=== PATIENT | female | born 1955 | race Caucasian/White ===

== ENCOUNTER 2018-04-04 07:11 | Outpatient (CLI) | payer BC, SELFPAY ==
[2018-04-04 07:49] LABS: Abs Immature Grans 0.01 k/cumm (0.0-0.09); Absolute Basophil Count 0.03 k/cumm (0.0-0.2); Absolute Eosinophil Count 0.16 k/cumm (0.0-0.7); Absolute Lymphocyte Count 1.52 k/cumm (1.2-3.4); Absolute Monocyte Count 0.36 k/cumm (0.11-0.7); Absolute Neutrophil Count 2.95 k/cumm (1.2-6.7); Basophils % 0.6; Eosinophils % 3.2; HCT 43.8 % (36.0-46.0); HGB 14.5 g/dL (12.0-15.5); Immature Grans % 0.2; Lymphocytes % 30.2; Mean Corp. HGB Concentration 33.1 g/dL (32.0-36.0); Mean Corpuscular Hemoglobin 31.8 pg (27.0-33.0); Mean Corpuscular Volume 96.1 fL (80-95); Mean Platelet Volume 9.1 fL (8.0-11.0); Monocytes % 7.2; Neutrophils % 58.6; Platelet Count 212 x1000/uL (130-400); RBC 4.56 m/cumm (4.00-5.20); RBC Distribution Width 12.9 % (11.7-14.6); White Blood Cell Count 5.03 k/cumm (4.4-10.8)
[2018-04-04 08:19] LABS: Bilirubin Negative (Negative); Blood Negative (Negative); Clarity Clear; Glucose Negative (Negative); Ketones Negative (Negative); Leukocyte Esterase Trace (Negative); Nitrite Negative (Negative); Urobilinogen 0.2 EU/dL (Up TO 0.2)
[2018-04-04 08:37] LABS: Epithelial Cells Moderate HPF (Negative)
[2018-04-04 08:38] LABS: Bacteria Moderate HPF (Negative); C & S Indicated? No/Sq. Contamination; Casts Negative LPF (Negative); Crystals Negative HPF (Negative); Mucus Heavy (Negative); Other Cells Mod Transitional (Negative)
[2018-04-04 08:43] LABS: ALT 43 U/L (12-78); AST 24 U/L (15-37); Albumin 4.2 g/dL (3.4-5.0); Alkaline Phosphatase 98 U/L (46-116); Anion Gap 7.8 mmol/L (3-11); BUN 17 mg/dL (7-18); Bilirubin, Total 0.4 mg/dL (0.2-1.0); CO2 29.2 mmol/L (21.0-32.0); CREATININE 0.83 mg/dL (0.55-1.02); Calcium 9.6 mg/dL (8.5-10.1); Chloride 106 mmol/L (98-107); FREE T4 0.88 ng/dL (0.76-1.46); Glucose 111 mg/dL (70-100); Potassium 4.4 mmol/L (3.5-5.1); Sodium 143 mmol/L (136-145); Total Protein 7.2 g/dL (6.4-8.2)
[2018-04-04 09:06] LABS: Cholesterol 227 mg/dL (50-200); HDL Cholesterol 69 mg/dL (40-60); LDL CHOLESTEROL 140 mg/dL (<100); Triglyceride 91 mg/dL (30-150)
[2018-04-04 20:57] LABS: T3,Free 3.7 pg/ml (2.8-5.3)
== END 2018-04-04 07:31 ==
PROVIDERS: Visit Provider Naturopath
DX: R53.83 Other fatigue (principal); D53.9 Nutritional anemia, unspecified; E55.9 Vitamin D deficiency, unspecified; Z00.00 Encounter for general adult medical examination without abnormal findings; Z13.220 Encounter for screening for lipoid disorders; E04.2 Nontoxic multinodular goiter
CPT/HCPCS: 36415; 80053; 80061; 82306; 83721; 81003; 81015; 84439; 84443; 84481; 85025

== ENCOUNTER 2018-05-16 00:38 | Outpatient (CLI) | payer BC, SELFPAY ==
[2018-05-16 08:39] LABS: CREATININE 0.76 mg/dL (0.55-1.02)
[2018-05-16] MEDS: Omnipaque 350 MG/ML 100 ML BTL IJ (09:23)
--- NOTE | 2018-05-16 09:30 | DI.CT_ITS ---
SYMPTOM/DIAGNOSIS: MICROSCOPIC HEMATURIA, R31.[address]: A noncontrast CT scan of the abdomen and pelvis was performed followed by post contrast and delayed images. There is a non obstructing, 2 mm. stone in the mid pole of the left kidney. No other urinary tract calculi are identified. No hydronephrosis is seen. Post contrast images were then obtained. The visualized lung bases show no acute abnormality. The dome of the liver was not included on this examination. The liver enhances normally. No suspicious hepatic masses are seen. The portal and superior mesenteric veins are patent. Within the gallbladder, there is a 0.4 cm. hyperdense nodule along the non dependent wall of the gallbladder. No biliary ductal dilatation is seen. The pancreas, spleen and adrenal glands are unremarkable. The kidneys show normal and symmetric enhancement. No evidence of a solid renal mass or obstruction. There is a well circumscribed , 7 mm. hypodense cortical lesion in the superior pole of the right kidney, likely reflecting a cyst. The urinary bladder is intact. The reproductive organs are unremarkable as visualized. The abdominal aorta is of normal caliber with minimal atherosclerosis. No significant abdominal or pelvic adenopathy, ascites or pneumoperitoneum is present. The bowel shows no evidence of obstruction or inflammation. No findings to suggest an acute appendicitis are present. Degenerative changes are seen in the spine. 7 minute delayed images through the renal collecting system were obtained. There is no evidence of hydronephrosis. No filling defects are seen within the ureters. There does not appear to be a bladder mass. IMPRESSION: 1. Non obstructing stone in the mid pole of the left kidney. No ureterolithiasis or hydronephrosis. 2. Small cyst in the upper pole of the right kidney. 3. 4 mm. nodule in along the non dependent portion of the gallbladder. Sonographic correlation is recommended.
== END 2018-05-16 00:58 ==
PROVIDERS: Nurse Practitioner Gerontology; PCP Family Medicine; Visit Provider Urology
DX: R31.21 Asymptomatic microscopic hematuria (principal); N20.0 Calculus of kidney; K82.8 Other specified diseases of gallbladder
CPT/HCPCS: 74178; 82565; J3490

== ENCOUNTER 2018-05-29 01:18 | Outpatient (CLI) | payer BC, SELFPAY ==
--- NOTE | 2018-05-29 07:18 | DI.US_ITS ---
SYMPTOM/DIAGNOSIS: F/U ABNL CT SHOWING 4 MM NODULE NEXT TO GB, ? GALLSTONE R31.9, K82.9 ABDOMINAL ULTRASOUND: 05/29 The visualized liver parenchyma is normal in appearance. There is an apparent polyp of the gallbladder wall measuring about 6 mm in diameter. No biliary dilatation is seen. No gallbladder wall thickening is seen. Pancreas is unremarkable in appearance as visualized. Kidneys are normal in size and shape. There is a small echogenic mid-pole focus in the left kidney which may represent a nonobstructing stone. This appears to have been present on CT of . Abdominal aorta and IVC are of normal diameter CONCLUSION: 1. Apparent gallbladder polyp 2. Nonobstructing left mid-pole renal calculus, 4 mm
== END 2018-05-29 01:38 ==
PROVIDERS: PCP Family Medicine; Visit Provider Naturopath
DX: K82.4 Cholesterolosis of gallbladder (principal); N20.0 Calculus of kidney; R31.9 Hematuria, unspecified; K82.9 Disease of gallbladder, unspecified
CPT/HCPCS: 76700

== ENCOUNTER 2018-05-29 08:41 | Day surgery (SDC) | payer BC, SELFPAY ==
[2018-05-29] MEDS: Lactated Ringers 1,000 ML 80 ML IV (08:53)
[2018-05-29 08:59] VITALS: BP 140/87; PULSE 70; RESP 16; TEMP 36.6; O2SAT 97
[2018-05-29] MEDS: Sulfameth/Trimeth DS TAB 1 TAB PO (09:23)
[2018-05-29] MEDS: Lidocaine 2% Jelly 11 ML SYR (10:45)
--- NOTE | 2018-05-29 11:09 | W.PM.DSUDISC ---
Discharge Plan Disposition Patient Disposition: HOME Condition: Stable Discharge Details Reason For Visit: MICROHEMATURIA Attending Provider: Greg Ferro Primary Care Provider: Susan Ford Home Meds and New Rx's Prescriptions: No Action cholecalciferol (vitamin D3) 1,000 unit capsule 1,000 unit PO DAILY RF: 0 Leaf Binner Tincture 0.5 drp PO DAILY RF: 0 Discharge Instructions Additional Instructions: Pt needs to have yearly urinalysis - can be done either at PCP or in our office Activity:: Activity as Tolerated Diet:: As Tolerated Discharge Orders Discharge Orders: Discharge Order (Routine); Ordered 05/29/18 Ordered By: Greg Ferro
--- NOTE | 2018-05-29 11:16 | PDOC.DSDIS_ITS ---
Discharge Plan Disposition Patient Disposition: HOME Condition: Stable Discharge Details Reason For Visit: MICROHEMATURIA Attending Provider: Greg Ferro Primary Care Provider: Susan Ford Home Meds and New Rx's Prescriptions: No Action cholecalciferol (vitamin D3) 1,000 unit capsule 1,000 unit PO DAILY RF: 0 Sat Math Tutor Tincture 0.5 drp PO DAILY RF: 0 Discharge Instructions Additional Instructions: Pt needs to have yearly urinalysis - can be done either at PCP or in our office Activity:: Activity as Tolerated Diet:: As Tolerated Discharge Orders Discharge Orders: Discharge Order (Routine); Ordered 05/29/18 Ordered By: Greg Ferro
[2018-05-29] MEDS: Phenazopyridine 200 MG TAB PO ×2 (11:25)
[2018-05-29 11:35] VITALS: BP 136/69; PULSE 67; RESP 16; TEMP 36.8; O2SAT 100
--- NOTE | 2018-05-29 13:45 | ROE_ITS ---
Date of Operation: May 29, 2018 Preoperative Diagnosis: Microscopic hematuria. Postoperative Diagnosis: Microscopic hematuria. Procedure: Cystoscopy. Surgeon: Greg Ferro M.D. Anesthesia: MAC with local Complications: None. History: This is a 63-year-old woman with a long history of kidney stones. She was recently identified as hav ing microscopic hematuria. She's been evaluated with a CT urogram. The CT showed a simple renal cyst on the right and a small kidney stone on the left which was not cau sing hydronephrosis. She presents now for cystoscopy to evaluate her lower urinary tract. Operative Report: The patient was brought to the operating room on 05/29/18. After successful induction of monitored a nesthesia care, she was placed in the dorsal lithotomy position. Her genitalia was prepped and drape d. A 17 Urdu rigid cystoscope was passed through the urethra into the bladder. The urethra and bladde r were inspected using the 30 and 70-degree lens. Both ureteral orifices appeared normal with no blood coming from either side. The remainder of the b ladder showed some inflammatory polyps at the bladder neck as well as a few small stone particles joshua t seemed adherent to the bladder mucosa near the trigone. Otherwise, no abnormalities were identifie d. Specifically, we did not find any sign of papillary or nodular tumor. These findings were confirmed on re-inspection of the bladder with a 30-degree lens. Based on today's examination, there is no evidence of significant uropathology. No treatment should be necessary unless the patient is symptomatic. Our current recommendations for microscopic hematuria is a repeat urinalysis yearly and a repeat work -up in 3-5 years if the hematuria persists. cc: Gayla Brizuela M.D.
== END 2018-05-29 11:58 | disposition home or self-care (01) ==
PROVIDERS: PCP Naturopath; Visit Provider Urology
PROC: 0TJB8ZZ Inspection of Bladder, Via Natural or Artificial Opening Endoscopic (ICD-10-PCS; CPT 52000; principal; 2018-05-29 10:15)
DX: R31.29 Other microscopic hematuria (principal); D41.4 Neoplasm of uncertain behavior of bladder; Z87.442 Personal history of urinary calculi
CPT/HCPCS: 52000

== ENCOUNTER 2018-09-21 12:17 | Outpatient (REF) | payer BC, SELFPAY ==
[2018-09-24 23:59] LABS: Iodine, 24 hr Urine 172 mcg/24 h (75 - 851); Urine Volume 1025 mL
== END 2018-09-21 12:37 ==
LOC: LBN 12:17
PROVIDERS: PCP Naturopath; Visit Provider Naturopath
DX: E01.8 Other iodine-deficiency related thyroid disorders and allied conditions (principal); E07.9 Disorder of thyroid, unspecified; E66.3 Overweight
CPT/HCPCS: 81050; 83018

== ENCOUNTER 2019-12-30 04:19 | Outpatient (CLI) | payer BC, SELFPAY ==
[2019-12-30 07:47] LABS: Abs Immature Grans 0.01 k/cumm (0.0-0.09); Absolute Basophil Count 0.02 k/cumm (0.0-0.2); Absolute Eosinophil Count 0.19 k/cumm (0.0-0.7); Absolute Lymphocyte Count 1.26 k/cumm (1.2-3.4); Absolute Monocyte Count 0.33 k/cumm (0.11-0.7); Basophils % 0.4; Eosinophils % 4.1; HCT 43.9 % (36.0-46.0); HGB 14.8 g/dL (12.0-15.5); Immature Grans % 0.2 %; Lymphocytes % 27.3; Mean Corp. HGB Concentration 33.7 g/dL (32.0-36.0); Mean Corpuscular Hemoglobin 32.2 pg (27.0-33.0); Mean Corpuscular Volume 95.6 fL (80-95); Monocytes % 7.2; Neutrophils % 60.8; Platelet Count 225 x1000/uL (130-400); RBC 4.59 m/cumm (4.00-5.20); RBC Distribution Width 13.2 % (11.7-14.6); White Blood Cell Count 4.61 k/cumm (4.4-10.8)
[2019-12-30 09:13] LABS: ALT 35 U/L (14-59); AST 24 U/L (15-37); Albumin 4.2 g/dL (3.4-5.0); Anion Gap 8.5 mmol/L (3-11); BUN 12 mg/dL (7-18); Bilirubin, Total 0.6 mg/dL (0.2-1.0); CO2 27.5 mmol/L (21.0-32.0); CREATININE 0.95 mg/dL (0.55-1.02); Calcium 9.3 mg/dL (8.5-10.1); Chloride 104 mmol/L (98-107); Estimated GFR 59.22 (mL/min/1.73m2); FREE T4 1.01 ng/dL (0.76-1.46); Glucose 108 mg/dL (74-106); Potassium 4.4 mmol/L (3.5-5.1); Sodium 140 mmol/L (136-145); TSH 0.31 uIU/mL (0.36-3.74); Total Protein 7.1 g/dL (6.4-8.2)
[2019-12-30 17:18] LABS: T3,Free 3.6 pg/mL (2.8-5.3)
[2019-12-31 04:21] LABS: Vitamin D 25 Total 41.5 ng/ml (30-100)
[2019-12-31 09:16] LABS: Thyroglobulin Antibody <15 U/mL (<=60); Thyroperoxidase Antibody <28 U/mL (<=60)
== END 2019-12-30 04:39 ==
PROVIDERS: PCP Naturopath; Visit Provider Naturopath
DX: E01.0 Iodine-deficiency related diffuse (endemic) goiter (principal); G44.209 Tension-type headache, unspecified, not intractable; E66.3 Overweight; M25.551 Pain in right hip; K82.4 Cholesterolosis of gallbladder; E78.00 Pure hypercholesterolemia, unspecified; Z00.01 Encounter for general adult medical examination with abnormal findings; E55.9 Vitamin D deficiency, unspecified; R53.83 Other fatigue; I10 Essential (primary) hypertension; N20.0 Calculus of kidney
CPT/HCPCS: 36415; 80051; 82306; 82947; 84520; 86376; 82040; 82247; 82310; 82565; 84155; 84439; 84443; 84450; 84460; 84481; 85025

== ENCOUNTER 2020-01-12 20:40 | Outpatient (REF) | payer BC, SELFPAY ==
[2020-01-14 22:05] LABS: Iodine, 24 hr Urine 627 mcg/24 h (75 - 851); Urine Volume 1250 mL
== END 2020-01-12 21:00 ==
LOC: NCHCN 20:40
PROVIDERS: PCP Naturopath; Visit Provider Naturopath
DX: I10 Essential (primary) hypertension (principal); E01.0 Iodine-deficiency related diffuse (endemic) goiter; N20.0 Calculus of kidney; E78.00 Pure hypercholesterolemia, unspecified; Z00.01 Encounter for general adult medical examination with abnormal findings; E55.9 Vitamin D deficiency, unspecified; R53.83 Other fatigue; G44.209 Tension-type headache, unspecified, not intractable; M25.551 Pain in right hip; K82.4 Cholesterolosis of gallbladder; E66.3 Overweight
CPT/HCPCS: 81050; 83018

== ENCOUNTER 2020-10-31 11:10 | Emergency (ER) | payer BC, SELFPAY ==
[2020-10-31] VITALS (9 sets, daily range): BP systolic 131–142; BP diastolic 71–79; PULSE 58–73; RESP 8–20; TEMP 36.5–36.9; O2SAT 95–100
--- NOTE | 2020-10-31 11:15 | RT.EKG_ITS ---
APPROVED REPORT Exam: Resting ECG Patient Location: E HR:62 bpm ECG Measurements Heart Rate 62 AXIS RI 152 P 55 QRSd 104 QRS -18 QT 443 T 51 QTc 449 Conclusion Sinus rhythm...normal P axis, V-rate 60- 99 no STEMI, non-diagnostic EKG I have reviewed and interpreted ECG and agree with software generated interpretation.
--- NOTE | 2020-10-31 12:23 | W.ED.GENAD ---
Discharge Plan Disposition Patient Disposition: HOME Condition: Good Discharge Details Clinical Impression: Chest pain Primary Care Provider: Susan Ford ED Provider: Lita Dobbs Home Meds and New Rx's Prescriptions: No Action cholecalciferol (vitamin D3) 1,000 unit capsule 1,000 unit PO DAILY RF: 0 Super[employer] Tincture 0.5 drp PO DAILY RF: 0 Discharge Instructions Instructions: Chest Pain (ED) Additional Instructions: Please follow-up with your primary care physician Recommend outpatient stress test at the discretion of your primary care physician Please return earlier should you have new or worsening complaints Do not engage in new exercise activities until cleared by your doctor Discharge Data Discharge Date/Time-TO BE ENTERED AT DEPARTURE: 10/31/20 16:45 Medical Decision Making Chest x-ray does not show evidence of acute pathology, initial troponin negative and EKG does not show evidence of acute abnormality Repeat EKG at the 3-hour adriano and repeat troponin are maintained within normal limits Diagnostic labs are reassuring No evidence of ST elevation GA on EKG Outpatient stress test ordered Will need close outpatient follow-up with primary care physician Return precautions discussed and patient expressed understanding Chest x-ray does not show acute pathology D-dimer 393 Differential Diagnosis Differential Diagnosis: Pulmonary embolism, angina, ST elevation GA, anxiety Medical Records Medical records reviewed: Yes I reviewed the patient's medical records. Lab Data Lab results reviewed: Yes I reviewed the patient's lab results. ECG Data Prior ECG tracings: available for review HPI This 65-year-old female presents for report of chest pain which started at approximately 1030 at rest. Patient denies any shortness of breath. She denies any fever or chills. She denies any recent flights, surgeries, long drives, history of coagulopathy. She states that initially when she had the pain it actually was worsened with deep inspiration. She states it radiates through to her back. She denies history of hypertension or hyperlipidemia. She does not smoke tobacco. She denies any associated abdominal pain, nausea, or diaphoresis. She had an EKG performed which was negative per EMS. denies any calf pain or swelling. Denies prior history of similar symptoms in the past. General Date/Time Provider Initiated Documentation: 10/31/20 11:47. Related Data Home Medications Medication Instructions Recorded Confirmed cholecalciferol (vitamin D3) 25 1,000 unit PO DAILY 05/12/18 05/29/18 mcg (1,000 unit) capsule Super[employer] Tincture 0.5 drp PO DAILY 05/27/18 05/29/18 Allergies Allergy/AdvReac Type Severity Reaction Status Date / Time No Known Allergies Allergy Unverified 05/29/18 08:57 General Stated Complaint: Chest Pain RAYA: 2 Review of Systems Narrative: Review of systems obtained x7 aside from where indicated in HPI; PFSH Social History Smoking/Tobacco Use Status: Never Smoking risk assessment performed?: Yes Alcohol Intake: current Alcohol Intake frequency: a few times a month Drug use: Never Substance use type: does not use Exam Const General: cooperative, comfortable and no acute distress Neck Other: No carotid bruit or pulsatile mass Chest Chest: normal inspection of the chest Resp Effort & Inspection: normal respiratory effort Auscultation: clear to auscultation bilaterally Cardio Rate: regular rate Rhythm: regular rhythm GI Inspection: normal to inspection Other: Nontender abdominal exam Skin General skin exam: no rashes or lesions noted Neuro General: patient alert and patient oriented x3 Cranial Nerves: CN's II-XI intact bilaterally Extrem Other: No calf tenderness or swelling appreciated on exam Course Vital Signs Vital signs: Vital Signs Temperature 36.5 C 10/31/20 11:24 Pulse 61 10/31/20 11:24 Respiratory Rate 20 10/31/20 11:24 Pulse Oximetry 98 10/31/20 11:24 Temperature 36.5 C 10/31/20 11:24 Temperature Source Skin 10/31/20 11:24 Pulse 61 10/31/20 11:24 Respiratory Rate 20 10/31/20 11:24 Respiratory Effort Non-Labored 10/31/20 11:33 Blood Pressure Position Sitting 10/31/20 11:24 Pulse Oximetry 98 10/31/20 11:24 Oxygen Delivery Method Room Air 10/31/20 11:24 Oxygen Flow Rate 0 10/31/20 11:24 Pain Level 3 10/31/20 11:24
[2020-10-31 12:31] LABS: Abs Immature Grans 0.02 10^3/uL (0.0-0.06); Absolute Basophil Count 0.06 10^3/uL (0.0-0.2); Absolute Eosinophil Count 0.25 10^3/uL (0.0-0.7); Absolute Lymphocyte Count 1.72 10^3/uL (1.2-3.4); Absolute Monocyte Count 0.49 10^3/uL (0.1-0.8); Eosinophils % 4.1; HGB 14.2 g/dL (11.2-15.7); Immature Grans % 0.3; MCV 96.8 fL (80-95); MPV 9.3 fL (8.0-11.0); Neutrophils % 58.6; Nucleated RBC 0 %; Platelet Count 219 10^3/uL (130-400); RBC 4.44 10^6/uL (3.93-5.22); RDW 12.6 % (11.7-14.6); RDW-SD 45.1 fL; WBC 6.14 10^3/uL (4.4-10.8)
[2020-10-31 12:55] LABS: ALT 33 U/L (14-59); AST 24 U/L (15-37); Albumin 4.4 g/dL (3.4-5.0); Alkaline Phosphatase 84 U/L (46-116); Anion Gap 9.5 mmol/L (3-11); BUN 15 mg/dL (7-18); Bilirubin, Total 0.6 mg/dL (0.2-1.0); CO2 28.5 mmol/L (21.0-32.0); CREATININE 0.8 mg/dL (0.55-1.02); Calcium 9.7 mg/dL (8.5-10.1); Chloride 105 mmol/L (98-107); Glucose 95 mg/dL (74-106); Magnesium 2.4 mg/dL (1.8-2.4); Potassium 4.3 mmol/L (3.5-5.1); Sodium 143 mmol/L (136-145); Total Protein 7.1 g/dL (6.4-8.2)
[2020-10-31 12:56] LABS: Troponin I < 0.05 ng/mL (<0.06)
[2020-10-31 13:03] LABS: D-Dimer 393 ng/mlFEU (<500)
--- NOTE | 2020-10-31 15:15 | RT.EKG_ITS ---
APPROVED REPORT Exam: Resting ECG Reason for Exam: chest pain Patient Location: E HR:69 bpm ECG Measurements Heart Rate 69 AXIS NJ 171 P 56 QRSd 103 QRS -15 QT 466 T 47 QTc 500 Conclusion Sinus rhythm...normal P axis, V-rate 60- 99
[2020-10-31 16:18] LABS: Troponin I < 0.05 ng/mL (<0.06)
[2020-11-01 15:41] LABS: COVID-19 RT-PCR UVMMC Result Negative (Negative)
== END 2020-10-31 16:45 | disposition home or self-care (01) ==
PROVIDERS: Emergency Provider Physician Assistant; PCP Naturopath
DX: R07.89 Other chest pain (principal); Z03.818 Encounter for observation for suspected exposure to other biological agents ruled out
CPT/HCPCS: 36415; 80053; 93005; 99284; U0003; 83735; 84484; 85025; 85379; 93010

== ENCOUNTER 2020-11-03 01:38 | Outpatient (CLI) | payer BC, SELFPAY ==
--- NOTE | 2020-11-03 08:00 | ETT_ITS ---
APPROVED REPORT Exam: Exercise Treadmill Patient Location: Out-Patient Room/Bed: Stress Nurse: Yadira Cr RN Ordering Provider:LISANDRO EUBANKS, Contact Number: [phone] BMI: 27.46 Baseline Rhythm: Sinus Rhythm Indications: CHEST PAIN Medical History Medical History: HLD, Pre-hypertensive Cardiac Medications: [place] (BP tincture) Allergies: No known drug allergies Cardiac Risk Factors: FHX of CAD, Hyperlipidemia Previous Cardiac Procedures: None Pretest Chest Pain Characteristics: None. Exercise History: Physically active Physical Disabilities: None Lung Sounds: Clear to auscultation Heart Sounds: Regular Stress Test Details Test: Exercise stress testing was performed using a Gael protocol. Rest Stress HR Resting HR Supine: 73 bpm Max Heart Rate (APMHR): 155 bpm Resting HR Standin bpm Target HR (85% APMHR): 131 bpm Max HR Achieved: 176 bpm % of APMHR: 113 Recovery HR: 98 bpm HR response to stress: Normal HR response to stress BP Resting BP Supine: 140/92 mmHg Resting BP Standin/88 mmHg Max BP: 180/78 mmHg Recovery BP: 148/82 mmHg BP response to stress: Normal blood pressure response to stress. ECG Resting ECG: Sinus Rhythm Ectopy: None Stress ECG: Sinus Tachycardia ST Change: Upsloping ST depression Lead(s): V3, V4, V5 Stage: [address] Deviation: 0.5 mm Arrhythmia: multifocal PVCs Recovery ECG: Sinus Rhythm Recovery ST Change: No significant ST segment changes noted Recovery Arrhythmia: PACs, PVCs Clinical Reason for Termination: Fatigue Stress Symptoms: General Fatigue Exercise duration: 10 min28 sec Highest Stage Reached: Stage 4: 4.2 mph at 16% grade. Exercise capacity: 12.59 METs Hall Treadmill Score: 8 Rate Pressure Product: 20024 Stress ECG Conclusion 1. The resting electrocardiogram was normal 2. Patient exercised on the Gael protocol and achieved a workload of 12.59 METS, limited by fatigue 3. Normal heart rate and blood pressure response to exercise. The patient achieved greater than 100% of predicted heart rate for age 4. Electrocardiographically there was no evidence of myocardial ischemia 5. Sporadic PVCs were seen during exercise. In recovery both atrial and premature ventricular ectopy was noted Hall Treadmill Score is 8 which is Low risk. Stress Test Summary STAGE Time (mins) Speed (mph) Grade (%) HR BP SYMPTOMS METS Supine 73 140/92 Standing 92 136/88 1 3 1.7 10 121 146/82 SpO2 95% 4.6 2 6 2.5 12 145 170/82 SpO2 94% 7 3 9 3.4 14 160 166/74 SpO2 91% 10.2 1 min recovery 148 180/78 SpO2 97% 3 min recovery 105 168/80 6 min recovery 98 148/82
== END 2020-11-03 01:58 ==
PROVIDERS: PCP Naturopath; Visit Provider Physician Assistant
DX: R07.9 Chest pain, unspecified (principal); Z82.49 Family history of ischemic heart disease and other diseases of the circulatory system; E78.5 Hyperlipidemia, unspecified; I49.3 Ventricular premature depolarization
CPT/HCPCS: 93017

== ENCOUNTER 2021-11-24 01:44 | Outpatient (CLI) | payer BC, SELFPAY ==
[2021-11-24 08:13] LABS: Abs Immature Grans 0.01 10^3/uL (0.0-0.06); Absolute Basophil Count 0.06 10^3/uL (0.0-0.2); Absolute Eosinophil Count 0.21 10^3/uL (0.0-0.7); Absolute Lymphocyte Count 1.42 10^3/uL (1.2-3.4); Absolute Neutrophil Count 2.07 10^3/uL (1.2-6.7); Basophils % 1.5; Eosinophils % 5.2; HCT 41.5 % (36.0-46.0); HGB 13.7 g/dL (11.2-15.7); Immature Grans % 0.2; Lymphocytes % 34.9; MCH 31.8 pg (27.0-33.0); MCV 96 fL (80-95); MPV 9.1 fL (8.0-11.0); Monocytes % 7.4; Neutrophils % 50.8; Platelet Count 191 10^3/uL (130-400); RBC 4.31 10^6/uL (3.93-5.22); RDW 12.5 % (11.7-14.6); RDW-SD 44.7 fL; WBC 4.07 10^3/uL (4.4-10.8)
[2021-11-24 08:13] LABS: Bilirubin Negative (Negative); Blood Negative (Negative); Clarity Clear (Clear); Glucose Negative (Negative); Ketones Negative (Negative); Leukocyte Esterase Small (Negative); Nitrite Negative (Negative); Specific Gravity 1.025 (1.005-1.025); Urobilinogen 0.2 EU/dL (Up TO 0.2); pH 6.5 (5-8)
[2021-11-24 08:25] LABS: Bacteria Rare HPF (Negative); C & S Indicated? Yes; Casts Negative LPF (Negative); Crystals Negative HPF (Negative); Epithelial Cells Few HPF (Negative); Mucus Trace (Negative); RBC Negative HPF (0-2)
[2021-11-24 08:31] LABS: Hemoglobin A1C 5.5 % (<5.7)
[2021-11-24 10:00] LABS: ALT 28 U/L (14-59); AST 19 U/L (15-37); Albumin 4.2 g/dL (3.4-5.0); Alkaline Phosphatase 86 U/L (46-116); Anion Gap 6.6 mmol/L (3-11); BUN 14 mg/dL (7-18); Bilirubin, Total 0.5 mg/dL (0.2-1.0); CO2 28.4 mmol/L (21.0-32.0); CREATININE 0.9 mg/dL (0.55-1.02); Calculated LDL 126 mg/dL (<100); Chloride 108 mmol/L (98-107); Cholesterol 206 mg/dL (<200); Glucose 94 mg/dL (74-106); HDL Cholesterol 66 mg/dL (40-60); Potassium 4.6 mmol/L (3.5-5.1); Sodium 143 mmol/L (136-145); TSH 0.11 uIU/mL (0.36-3.74); Total Protein 6.8 g/dL (6.4-8.2); Triglyceride 70 mg/dL (<150); Vitamin B12 284 pg/mL (193-986)
[2021-11-28 09:41] LABS: 25-Hydroxy D Total 45 ng/mL; 25-Hydroxy D2 <4.0 ng/mL; 25-Hydroxy D3 45 ng/mL
[2021-11-28 16:55] LABS: Procollagen I IntactN-Terminal 59 mcg/L
== END 2021-11-24 01:45 | disposition home or self-care (01) ==
LOC: LBO 01:45
PROVIDERS: PCP Naturopath; Visit Provider Naturopath
DX: E04.8 Other specified nontoxic goiter (principal); R53.83 Other fatigue; E55.9 Vitamin D deficiency, unspecified; D53.9 Nutritional anemia, unspecified; R35.0 Frequency of micturition; R42 Dizziness and giddiness; E07.89 Other specified disorders of thyroid; Z13.220 Encounter for screening for lipoid disorders; Z13.1 Encounter for screening for diabetes mellitus
CPT/HCPCS: 36415; 80053; 80061; 82306; 83519; 81003; 81015; 82607; 83036; 84443; 84681; 85025; 87086

== ENCOUNTER → 2021-12-08 00:43 | Outpatient (CLI) | payer BC, SELFPAY ==
--- NOTE | 2021-12-08 13:00 | DI.DEXA_ITS ---
Exam(s) XR DEXA BONE DENSITY W/WO SACHI EXAM: XR DEXA BONE DENSITY W/WO SACHI CLINICAL HISTORY: SCREENING FOR OSTEOPOROSIS, Z13.820 TECHNIQUE: COMPARISON: Comparison examination is 05/02/2011. FINDINGS: Lateral Spine Image: Unremarkable. No compression deformities identified. Left hip: Total T-Score: -1.8. This compares to -1.3 on the prior examination. This is a decrease in bone mine ral density. Total Z-Score: -0.5 T- and Z-scores: There is osteopenia seen in the left hip. There is osteoporosis seen in the femoral neck with a T-score of -2.7. Lumbar Spine: Total T-Score: -1.8. This compares to -2.0 on the prior examination. Total Z-Score: 0.1 T- and Z-scores: Findings of osteopenia. IMPRESSION: Osteoporosis is seen in the left femoral neck.
== END ==
PROVIDERS: PCP Naturopath; Visit Provider Naturopath
DX: M81.0 Age-related osteoporosis without current pathological fracture (principal); M85.88 Other specified disorders of bone density and structure, other site
CPT/HCPCS: 77080

== ENCOUNTER → 2021-12-22 00:25 | Outpatient (CLI) | payer BC, SELFPAY ==
--- NOTE | 2021-12-22 15:55 | DI.MAMMO_ITS ---
Exam(s) MAMMO SCREENING EXAM: MAMMO SCREENING CLINICAL HISTORY: SCREENING, Z12.31 TECHNIQUE: Bilateral full field digital CC and MLO mammographic images were obtained with 3D tomosyn thesis and utilizing computer aided detection (CAD). COMPARISON: Available for comparison. FINDINGS: Masses/Architectural Distortion: None seen. Microcalcifications: No suspicious pleomorphic-type are seen. Skin Thickening/Nipple Retraction: None. IMPRESSION: 1. No significant interval change with no specific features of malignancy noted. 2. Unless there is more urgent need, screening mammography is recommended, as per [employer] [place] [employer] guidelines. BI-RADS Category 1 - Negative Breast Density - Category B - Scattered areas of fibroglandular density Breast density category C or D implies that the patient has dense breast tissue. Dense breast tissue is very common and is not abnormal but dense breast tissue can make it harder to find cancer on a ma mmogram. Also, dense breast tissue may increase their breast cancer risk. This information about the result of the mammogram report was provided to the patient to raise their awareness. Use this report when you speak with the patient about their risks for breast cancer, which includes their family hist ory. At that time, you may recommend for more screening tests (Ultrasound or MRI) as they might be us eful based on their risk. A negative radiographic report should not delay biopsy if a dominant or clinically suspicious mass is present. Up to ten percent of cancers are not identified on mammography. A negative report may reinforce clinical impression. Adenosis and dense breasts may obscure an underlying neoplasm. False positive reports average 6 to 10%. Patient will receive a letter notifying them of these results.
== END ==
PROVIDERS: PCP Naturopath; Visit Provider Nurse Practitioner Adult Health
DX: Z12.31 Encounter for screening mammogram for malignant neoplasm of breast (principal)
CPT/HCPCS: 77063; 77067

== ENCOUNTER → 2022-05-23 07:34 | Outpatient (BNVA) | payer MEDICARE, BC, SELFPAY | PROVIDERS: PCP Naturopath; Referring Provider Naturopath; Visit Provider Surgery | DX: Z12.11 Encounter for screening for malignant neoplasm of colon (principal) ==

== ENCOUNTER 2022-05-31 09:39 | Day surgery (SDC) | payer MEDICARE, BC, SELFPAY ==
--- NOTE | 2022-05-30 17:20 | W.PM.DSUDISC ---
Date of service: 05/31/22 Time of Service: 12:09 Discharge Plan Disposition Patient Disposition: HOME Condition: Good Discharge Details Attending Provider: Kendall Hector Primary Care Provider: Sajan Singh Home Meds and New Rx's Prescriptions: Continued Women's 50 Plus Multivitamin 400 mcg-500 mg calcium-20 mcg tablet 1 tab PO DAILY alendronate [Fosamax] 70 mg tablet 70 mg PO QWEEK cholecalciferol (vitamin D3) 1,000 unit capsule 1,000 unit PO DAILY citranox tablet 1 tab PO DAILY ascorbic acid (vitamin C) 500 mg capsule 500 mg PO DAILY Discontinued polyethylene glycol 3350 17 gram/dose powder 238 g PO ONCE Qty: 238 0RF Rx Instructions: take per colonoscopy instructions bisacodyl [Dulcolax (bisacodyl)] 5 mg tablet,delayed release (DR/EC) 5 mg PO ONCE Qty: 4 0RF Rx Instructions: take per colonoscopy instructions Discharge Instructions Additional Instructions: 1. If tolerated, consume a soft, low fiber diet for 1-2 days. 2[address] Do not drive, drink alcohol, operate machinery, make critical decisions, or do activities that require coordination or balance for 24 hours. 3. Because air was put into your colon during the procedure, expelling air from your rectum (passing gas or farting) is normal. 4. You may not have a bowel movement for 1-3 days because of the colonoscopy prep. This is normal. 5. Go directly to the emergency room if you notice any of the following: Develop chills (warm to touch), or if you have a thermometer and your temperature is above 101 Difficulty breathing or difficultly swallowing Persistent vomiting Severe abdominal pain, other than gas cramps Severe chest pain Black, tarry stools Any bleeding ? exceeding one tablespoon 6. Call your physician if the site where your intravenous was started becomes red, swollen, painful, and warm to touch. 7. Your physician has reviewed your pre-procedure medications. Please continue to take those medications as previously ordered. You will be given specific information/education regarding any changes to your medications before leaving. Activity:: Activity as Tolerated Diet:: As Tolerated DS: Diagnosis Discharge Diagnosis (1) Hx of colonoscopy: Asessment and Plan: Normal screening colonoscopy. You can follow-up for the next 1 in 10 years.
--- NOTE | 2022-05-30 17:21 | COLE_ITS ---
Date of service: 05/31/22 Time of Service: 12:10 Colonoscopy Report Date of procedure: 05/31/22 Pre-op diagnosis general: Routine health maintenance screening colonoscopy Post-op diagnosis procedure note: same Procedure: Screening colonoscopy Surgeon: Kendall Hector Anesthesia Type: General:No Airway Estimated blood loss (mL): 0 Pathology: none sent Complications: None Disposition: same day Indications: Concepcion is 67 years old and due for her next screening colonoscopy as part of routine health maintenance Prep: Miralax/Dulcolax Procedure Start Time: 11:40 Procedure End Time: 12:03 Retraction Time: 14 Findings: Normal colonoscopy Procedure Description: After the induction of monitored anesthetic care, and with the patient in left lateral decubitus position, I began by performing an external anorectal exam.? Perineum and skin were normal, as was the anal verge.? There was no evidence of external hemorrhoids.? Next, I performed a digital rectal exam.? I did not appreciate any abnormal findings.? Next, I advanced a colonoscope into the rectal vault.? I performed retroflexion.? There were grade 1 internal hemorrhoids. using insufflation, I then advanced the colonoscope beyond the rectal folds and into the sigmoid colon before advancing towards the cecum.? The quality of the prep was excellent.? The scope was noted to be in the cecum by identification of the ileocecal valve and appendiceal orifice.? I then began w ithdrawing the colonoscope using repeated irrigation as necessary for full evaluation of the colonic mucosa. ?Once the scope was withdrawn to the level of the rectum, great care was taken to examine portions of the rectal folds.? Finally, the scope was withdrawn and the patient was brought to the same-day surgery recovery unit as the anesthetic wore off. ?The findings and instructions were shared with the patient prior to discharge.
[2022-05-31 10:27] VITALS: BP 140/78; PULSE 72; RESP 16; TEMP 36.2; O2SAT 98
[2022-05-31] MEDS: Lactated Ringers 1,000 ML 80 ML IV (10:55)
--- NOTE | 2022-05-31 10:59 | W.ANESPRE ---
General Info Date of Service Date Performed: 05/31/22 Height: 5 ft 4 in Weight: 74 kg Body Mass Index (BMI): 28.0 Surgical Procedure: Operation Date: 05/31/22 11:20 Proposed Procedure Side Surgeon genna Hector MD Meds Allergies and Home Medications Allergies Allergy/AdvReac Type Severity Reaction Status Date / Time No Known Allergies Allergy Unverified 05/31/22 10:26 Home Medication Medication Instructions Recorded cholecalciferol (vitamin D3) 25 1,000 unit PO DAILY 05/12/18 mcg (1,000 unit) capsule ascorbic acid (vitamin C) 500 mg 500 mg PO DAILY 02/12/22 capsule citranox 1 tab PO DAILY 02/12/22 alendronate 70 mg tablet (Fosamax) 70 mg PO QWEEK 05/23/22 [id number] ac 400 1 tab PO DAILY 05/23/22 mcg-calcium carb 500 mg-vit K1 20 mcg tablet (Women's 50 Plus Multivitamin) Current Visit Medications: Current Medications Generic Name Dose Route Start Last Admin Trade Name Brendenq PRN Reason Stop Dose Admin Hyoscyamine Sulfate 0.125 mg 05/30/22 17:21 Hyoscyamine 0.125 Mg Sl/Oral/Chew SL DIRECTED PRN Ringer's Solution 1,000 mls @ 80 mls/hr 05/31/22 06:00 05/31/22 10:55 IV 06/29/22 23:59 80 mls/hr INFUSION LANDON Administration IV Miscellaneous Supplies 1 each 05/31/22 06:00 Iv Access IV 06/29/22 23:59 DIRECTED LANDON Ondansetron HCl 4 mg 05/30/22 17:21 Ondansetron 4 Mg/2 Ml Vial IVP Q4H PRN PRN Nausea / Vomiting Sodium Chloride 0 ml 05/31/22 06:00 Normal Saline Flush 10 Ml Syr IV 06/29/22 23:59 PRN PRN Sodium Chloride 0 ml 05/31/22 06:00 Normal Saline 10 Ml Vial IJ 06/29/22 23:59 DIRECTED PRN Sterile Water 0 ml 05/31/22 06:00 Water,Injection,Sterile 10 Ml Vial IJ 06/29/22 23:59 DIRECTED PRN PFSH Active Problems Active Problems: Problem Status Onset Code Chest pain R07.9 Migraine G43.909 Vaginal prolapse N81.10 Hypertension I10 Medical History Medical History Goiter benign. x20yrs Nephrolithiasis laser surgery. [facility] 2014. Medical History Comments:: During one kidney stone removal; postop vomiting Surgical History Surgical History Hx of colonoscopy Hx of cystoscopy ; kidney stone removal Tobacco Smoking/Tobacco Use Status: Never Alcohol Alcohol Intake: current Alcohol intake frequency: a few times a month Substance Use Substance use: Never Substance use type: does not use Prental History History 1 Para Hx # Term Pregnancies 1 Multiple births Hx # Pregnancies Ectopic pregnancies AB induced Hx Number of Living Children 1 AB spontaneous Vital Signs and Lab Results Vital Signs Most Recent Vital Signs in EMR: Most Recent Vital Signs Temp Pulse Resp BP Pulse Ox 36.2 C L 72 16 140/78 98 05/31/22 10:27 05/31/22 10:27 05/31/22 10:27 05/31/22 10:27 05/31/22 10:27 Lab Results Blood Type / Crossmatch: No Data to Display Complete Blood Count: No Data to Display Complete Metabolic Panel: No Data to Display Liver Function Panel: No Data to Display Coagulation Panel: No Data to Display Cardiac Panel: No Data to Display Arterial Blood Gas: No Data to Display Venous Blood Gas: No Data to Display Pancreas Panel: No Data to Display Thyroid Panel: No Data to Display Infectious Disease: No Data to Display Blood Cultures: No Data to Display Toxicology Panel: No Data to Display Anesthesia Assessment and Plan Anesthesia History Personal History: PONV Family History: No Family History of Anesthesia Complications Exercise Tolerance Exercise Tolerance: Metabolic Equivalents>4 Pertinent Negatives Pertinent Negatives: No Symptoms of GERD, No Major Cardiovascular Symptoms or Complaints and No History of CVA/TIA Cardiac & Pulmonary Exam Cardiac Exam: Normal S1/S2 Heart Sounds Pulmonary Exam: Clear Bilateral Breath Sounds Implantable Cardiac Device Does patient have a Pacemaker or an ICD?: No Airway Exam Known Difficult Airway: No Mallampati Class: 2 Mouth Opening: Normal (> 3cm) Thyromental Distance: Greater than 3 cm Neck Range of Motion: Full ROM Neck Circumference: Normal Teeth Condition: Normal Dentition Airway Comments: Left lateral goiter. Small in size and followed by medicine ASA Classification ASA Score: ASA 2 Emergency Case?: No NPO Status NPO Status: NPO Clears >2 hours, Solids >8 hours Anesthesia Plan Resuscitation Status: Full Code Anesthesia Technique: General Anesthesia Airway Planned: Natural Airway Monitors Used: Standard Monitors
[2022-05-31 11:00] VITALS: BMI 28.0
[2022-05-31 12:10] VITALS: BP 107/65; PULSE 78; RESP 18; TEMP 36.3; O2SAT 95
[2022-05-31] MEDS: Hyoscyamine 0.125 MG SL/ORAL/CHEW SL (12:27)
[2022-05-31 12:40] VITALS: RESP 18
[2022-05-31 12:59] VITALS: BP 145/84; PULSE 82; RESP 18; TEMP 36.5; O2SAT 98
--- NOTE | 2022-05-31 13:50 | W.ANESPOSTOP ---
Postoperative Evaluation Date, Time and Location Date Performed: 05/31/22 Time Performed: 13:50 Patient Location: Day Surgery Unit Vital Signs Most Recent Imported Vital Signs: Most Recent Vital Signs Temp Pulse Resp BP Pulse Ox 36.5 C 82 18 145/84 H 98 05/31/22 12:59 05/31/22 12:59 05/31/22 12:59 05/31/22 12:59 05/31/22 12:59 Pain Score Most Recent Pain Score: Most Recent Pain Score Pain Level 2 05/31/22 12:59 Assessment Mental Status: Awake (Alert & Oriented to Patient Baseline) Airway and Respiratory Function: Patent airway with normal (patient baseline) respiratory exam Cardiovascular Function: Hemodynamically Stable Hydration Status: Adequately Hydrated Nausea & Vomiting: Active Nausea or Vomiting Present Nausea and Vomiting Management: Nausea and vomiting active, being addressed with medication Pain: Pt. Denies Any Pain Peripheral Nerve Block: Patient did not receive a nerve block
== END 2022-05-31 13:08 | disposition home or self-care (01) ==
PROVIDERS: PCP Family Medicine; Visit Provider Surgery
PROC: 0DJD8ZZ Inspection of Lower Intestinal Tract, Via Natural or Artificial Opening Endoscopic (ICD-10-PCS; CPT 45378; principal; 2022-05-31 11:15)
DX: Z12.11 Encounter for screening for malignant neoplasm of colon (principal); Z86.010 Personal history of colon polyps
CPT/HCPCS: G0121; J3490